=== PATIENT | female | born 1950 | race Caucasian/White ===

== ENCOUNTER → 2016-10-01 | Outpatient (CLI) | payer OTHER ==
--- NOTE | 2016-10-01 17:47 | MA ---
Screening Digital Mammogram With iCAD Analysis Reason for Examination: Routine screening. Breast parenchymal density: Type B; Scattered fibroglandular densities. Technique: Four views of each breast are obtained including CC and oblique lateral Quynh (implant di splaced) and non-Quynh (implant not displaced) views. Images were reviewed using the iCAD computer a ided detection system. Comparison: September 2015, August 2014, April 2013, May 2012, January 2010, May 2008. Findings: Breast implants are in place bilaterally. iCAD is reviewed.No suspicious areas are identifi ed. There has been no significant change in the appearance of either breast. Breast implants diminish the sensitivity of mammography. Impression: Negative mammogram. BI-RADS 1. Recommendation: Routine screening is recommended in one year as long as physical examination is negat flaco. [facility] will send a result letter to the patient. Negative mammography should not preclude additional workup of a clinically suspicious finding. The patient's information is entered into a reminder system with a target due date for her next mammo gram.
== END ==
LOC: FIMAGING 14:31
DX: Z12.31 Encounter for screening mammogram for malignant neoplasm of breast (principal)
CPT/HCPCS: G0202

== ENCOUNTER → 2017-10-02 | Outpatient (CLI) | payer OTHER | LOC: FIMAGING 15:56 | DX: Z12.31 Encounter for screening mammogram for malignant neoplasm of breast (principal) ==